=== PATIENT | female | born 1955 | race Caucasian/White ===

== ENCOUNTER → 2017-08-03 | Day surgery (SDC) | payer BC ==
[2017-07-01 11:39] VITALS: Ht 157.5 cm; Wt 76.8 kg
[~2017-08-03] VITALS: Ht 157.5 cm; Wt 76.8 kg
[~2017-08-03] MED LIST: 500ML BSS 0.3ML EPI 1:1000PF IRRIG ONE; ACETAMINOPHEN 325 MG TAB PO PRN; AMT50 PO; AMVISC PLUS 0.8ML SYRINGE INT OCU ONE; ATROPINE SULFATE 0.1 MG/ML 5ML SYR IV PRN; BSS FLUSH ONE; CALC600T9 PO; CITA40TA12 PO; ETOD-146 PO; EpHEDrine SULFATE INJ 50 MG/ML AMP IV PRN; EpINEphrine INJ 1MG/ML AMP 1 MG/ML AMP ONE; FERR1TAB23 PO; LACTATED RINGER'S 1000ML 500 ML IV SCH; LIDOCAINE 3.5% OPH GEL PER APPLICATION CHARGE ONE; LIDOCAINE HCL 1% MPF 2 ML VIAL ONE; MIDAZOLAM HCL 1 MG/ML 2ML VIAL ONE; MISC1CAP58 PO; ONDANSETRON INJ 2 MG/ML 2 ML VIAL IV PRN; POVIDONE-IODINE OP SOLN 30 ML BTL ONE; PROPARACAINE 0.5% OP SOLN PER DROP CHARGE OPL SCH; RALO60TA30 PO; SIMV20TA2 PO; SUMA50TA15 PO; TOBRAMYCIN/DEXAMETHASONE OPH OINT PER APPLN CHARGE ONE; TOPI25TA99 PO; VITATAB19 PO
[2017-08-03] MEDS: PHENYLEPHRINE HCL 2.5% OP SOLN PER DROP CHARGE OPL SCH ×2 (09:35→09:40)
[2017-08-03] MEDS: TROPICAMIDE 1% OP SOLN PER DROP CHARGE OPL SCH ×2 (09:36→09:41)
[2017-08-03] MEDS: CYCLOPENTOLATE HCL 1% OP SOLN PER DROP CHARGE OPL SCH ×2 (09:37→09:42)
[2017-08-03] MEDS: KETOROLAC 0.5% OP SOLN PER DROP CHARGE OPL SCH ×2 (09:38→09:43)
[2017-08-03] MEDS: GATIFLOXACIN OP SOLN PER DROP CHARGE OPL SCH ×2 (09:39→09:52)
--- NOTE | 2017-08-03 10:35 | History & Physical Bridge - [place] ---
H&P Re-Evaluation Bridge Note: I have examined the patient, reviewed the History & Physical and in the interval since the performance of the History & Physical I have noted the following changes of clinical significance: Diagnosis: Left Cataract Procedure: Left Cataract Removal with Lens Implant No changes noted
--- NOTE | 2017-08-03 11:13 | Discharge Instructions-SurgCtr ---
Discharge Instructions Date of Service Aug 03, 2017. Visit Reason for Visit: Cataract Left Eye Discharge Discharge Diagnosis / Problem: cataract Discharge Goals Goal(s): Improve function Activity Recommendations Activity Limitations: per Instructions/Follow-up section Anesthesia . Post Anesthesia Instructions: If you have had General Anesthesia or IV Sedation: * Do not drive today. * Resume driving when surgeon permits. * Do not make important decisions or sign legal documents today. * Call surgeon for: 1. Temperature elevations greater than 101 degrees F. 2. Uncontrollable pain. 3. Excessive bleeding. 4. Persistent nausea and vomiting. 5. Medication intolerance (nausea, vomiting or rash). * For nausea and vomiting use only clear liquids such as: tea, soda, bouillon until nausea subsides, then gradually increase diet as tolerated. * If you have any concerns or questions, call your surgeon's office. If physician is unavailable and it is an emergency, call 911 or go to the nearest emergency room. . Diet Recommendations Home Diet: resume previous diet Procedures Procedures Performed: Left Cataract Phacoemulsification With Intraocular Lens Implant Pending Studies Studies pending at discharge: no Medical Emergencies . Who to Call and When: Medical Emergencies: If at any time you feel your situation is an emergency, please call 911 immediately. . Non-Emergent Contact Non-Emergency issues call your: [employer] . . "Provider Documentation" section prepared by Jefe Milian. .
--- NOTE | 2017-08-03 11:14 | [facility] Operative Report ---
Operative Report Date of Service Aug 03, 2017. Operative Report 1. PREOPERATIVE DIAGNOSIS: Cataract of the left eye. 2. POSTOPERATIVE DIAGNOSIS: Same. 3. PROCEDURE: Phacoemulsification with intraocular lens implantation of the left eye. SURGEON: Dr. Jefe Milian. ANESTHESIA: Topical Lidocaine gel, 1% Non- Preserved intracameral Lidocaine, and monitored intravenous sedation. INDICATIONS FOR THE PROCEDURE: The patient is a 61 - year-old female with a history of cataract of the left eye causing significant visual impairment. The details of the proposed procedure were explained to the patient who asked appropriate questions and following discussion of all risks, benefits and alternatives agreed to have the procedure done. 4. OPERATION AND FINDINGS: DESCRIPTION OF PROCEDURE: After informed consent was obtained, the patient was brought to the Operating Room at the [facility]. The patient was placed in a supine position and then the left eye was prepped and draped in the usual sterile fashion for intraocular surgery. A drop of topical Lidocaine gel was placed in the operative eye. A wire lid speculum was then placed in the fornices. A corneal paracentesis was then created temporally. The Non-Preserved Lidocaine was then instilled into the anterior chamber. The anterior chamber was then pressurized with viscoelastic. A 2.0 mm clear corneal incision was then created temporally. A cystotome was inserted into the anterior chamber and used to create a tear in the anterior lens capsule. This capsular tear was then used to create a small flap and the flap was dragged in a counterclockwise direction in order to create a continuous curvilinear capsulorrhexis. Hydrodissection was accomplished with balanced salt solution. Phacoemulsification of the lens nucleus was then performed in a standard [id number] technique. The phaco time was 16 seconds with an average power of 9 %. The remaining cortical material was removed using irrigation aspiration. The capsular bag was then filled with viscoelastic. A [employer] MX60 +27.0 diopters lens was then loaded into the injector and injected into the capsular bag. The remaining viscoelastic was removed with the irrigation aspiration handpiece. The wound was hydrated and then checked and found to be watertight. The intraocular pressure was checked and found to be adequate. The wire lid speculum was removed and the patient's face was cleaned and dried. TobraDex ointment was placed in the inferior fornix. The patient was discharged to the Recovery Room having tolerated the procedure well. There were no complications. The patient will be seen tomorrow in the office for follow-up. I attest to the content of the Intraoperative Record and any orders documented therein. Any exceptions are noted below.
[2017-08-03 11:16] VITALS: TEMP 36.9
[2017-08-03 11:36] VITALS: BP 142/82; PULSE 66; O2SAT 99
--- NOTE | 2017-08-03 11:47 | Anesthesiology Progress Note ---
Anesthesia Post Op Note Date & Time Aug 03, 2017 at 11:47 Vital Signs Pain Intensity: 0 Vital Signs Past 12 Hours Date Time Temp Pulse Resp B/P (MAP) Pulse Ox O2 Delivery O2 Flow Rate FiO2 08/03/17 11:36 66 18 142/82 (102) 99 08/03/17 11:16 36.9 72 16 143/85 (104) 97 Room Air 08/03/17 09:32 36.5 62 16 152/83 (106) 99 Room Air Notes Mental Status: alert / awake / arousable, participated in evaluation Nausea / Vomiting: adequately controlled Pain: adequately controlled Airway Patency, RR, SpO2: stable & adequate BP & HR: stable & adequate Hydration State: stable & adequate Anesthetic Complications: no major complications apparent
== END | disposition home or self-care (01) ==
LOC: X.SURG 09:00
PROVIDERS: ATTEND Ophthalmology
DX: H26.9 Unspecified cataract (principal); E78.5 Hyperlipidemia, unspecified; M06.9 Rheumatoid arthritis, unspecified; F32.9 Major depressive disorder, single episode, unspecified; G43.909 Migraine, unspecified, not intractable, without status migrainosus; H35.52 Pigmentary retinal dystrophy; Z79.899 Other long term (current) drug therapy

== ENCOUNTER 2022-08-18 09:21 | Observation (INO) ==
--- NOTE | 2022-07-30 11:51 | PAT Medication Instructions ---
Medication Instructions Date of Service July 30, 2022 Home Medications adalimumab 40 mg/0.8 mL subcutaneous pen kit (Humira Pen) 40 mg subcut DIRECTED calcium carbonate 600 mg-vitamin D3 5 mcg (200 unit) tablet 1 tab PO QAM citalopram 20 mg tablet (Celexa) 20 mg PO QAM etodolac 400 mg tablet 400 mg PO QAM ferrous sulfate 325 mg (65 mg iron) tablet (Iron (ferrous sulfate)) 325 mg PO QAM folic acid 1 mg tablet 1 mg PO QAM losartan 50 mg tablet 50 mg PO QAM lutein 20 mg tablet 20 mg PO QAM metoprolol succinate 25 mg tablet,extended release 24 hr 25 mg PO QAM pantoprazole 40 mg tablet,delayed release 40 mg PO QAM raloxifene 60 mg tablet (Evista) 60 mg PO QAM simvastatin 20 mg tablet 20 mg PO PM sumatriptan succinate 100 mg tablet (Imitrex) 100 mg PO DIRECTED PRN Migraine Headache vitamin A 10,000 unit capsule 10,000 unit PO QAM ASK your surgeon for instructions etodolac 400 mg tablet 400 mg PO QAM ASK your prescriber and surgeon adalimumab 40 mg/0.8 mL subcutaneous pen kit (Humira Pen) 40 mg subcut DIRECTED raloxifene 60 mg tablet (Evista) 60 mg PO QAM STOP taking 2 weeks before surgery vitamin A 10,000 unit capsule 10,000 unit PO QAM lutein 20 mg tablet 20 mg PO QAM DO NOT take the morning of surgery calcium carbonate 600 mg-vitamin D3 5 mcg (200 unit) tablet 1 tab PO QAM ferrous sulfate 325 mg (65 mg iron) tablet (Iron (ferrous sulfate)) 325 mg PO QAM folic acid 1 mg tablet 1 mg PO QAM losartan 50 mg tablet 50 mg PO QAM Take morning of surgery With a small sip of water, OTHERWISE NOTHING TO EAT OR DRINK AFTER MIDNIGHT: citalopram 20 mg tablet (Celexa) 20 mg PO QAM metoprolol succinate 25 mg tablet,extended release 24 hr 25 mg PO QAM pantoprazole 40 mg tablet,delayed release 40 mg PO QAM sumatriptan succinate 100 mg tablet (Imitrex) 100 mg PO DIRECTED PRN Migraine Headache (if needed) Take evening before surgery simvastatin 20 mg tablet 20 mg PO PM sumatriptan succinate 100 mg tablet (Imitrex) 100 mg PO DIRECTED PRN Migraine Headache (if needed) Other Notes If you have any questions please call us at [phone] or [phone] or [phone] or [phone]
--- NOTE | 2022-08-07 13:35 | Anesthesiology Consultation ---
Date of Service August 07, 2022 Assessment & Plan (1) Encounter for pre-operative examination: - COVID screening: Per assessment on 08/07: No known COVID-19 positive contacts or current COVID-19 related symptoms. Travel screen negative. Patient vaccinated. At surgeon discretion if preop Covid testing being done. - Outpatient joint assessment: Pt currently scheduled for inpatient pathway. If surgeon requests review for outpatient joint pathway, patient is not recommended candidate for outpatient joint program from anesthesia standpoint pending surgeon's office assessment of pt motivation/appropriate home support/completion of same day joint program preop requirements. - Cardiology office visit (07/21/22): "From a functional capacity standpoint patient is able to perform activities of above 4 METS. Patient states she climbs greater than 2 flights of stairs and also walks close to 6 miles/week without symptoms. Coronary CTA (2019): Of 0. Echocardiogram: (06/23) EF of 60- 65%. EKG: To show SB with LBBB (chronic). Based on history, physical examination and the above information do not recommend further invasive or noninvasive cardiovascular testing or procedures prior to proceeding with planned total knee replacement. Patient should be considered a low cardiovascular risk candidate. Would advise giving betablocker day of surgery." Chart Review Chart Review: Acceptable Risk for Surgery and Patient seen in Pre Admission Testing Teaching & Discussion Pre-Anesthesia Teaching/Discussion Notes: Instructed NPO after midnight before surgery,except medications with 15 cc of water. Medication instructions provided according to the PAT guidelines. History Surgery Operation Date: 08/18/22 12:30 Proposed Procedures p Right Total Knee Arthroplasty - Ryan Cobb DO Height/Weight Height: 5 ft 1 in Weight: 82 kg Allergies Allergy/AdvReac Type Severity Reaction Status Date / Time ampicillin Allergy Intermediate SKIN Verified 07/30/22 08:58 REACTION naproxen Allergy Intermediate SKIN Verified 07/30/22 08:58 REACTION indomethacin AdvReac Mild HEADACHES Verified 07/30/22 08:58 Medications Home Medications Medication Instructions Recorded Confirmed Last Taken adalimumab 40 mg/0.8 mL 40 mg subcut DIRECTED 07/30/22 07/30/22 Unknown subcutaneous pen kit (Humira Pen) calcium carbonate 600 mg-vitamin 1 tab PO QAM 07/30/22 07/30/22 Unknown D3 5 mcg (200 unit) tablet citalopram 20 mg tablet (Celexa) 20 mg PO QAM 07/30/22 07/30/22 Unknown etodolac 400 mg tablet 400 mg PO QAM 07/30/22 07/30/22 Unknown ferrous sulfate 325 mg (65 mg 325 mg PO QAM 07/30/22 07/30/22 Unknown iron) tablet (Iron (ferrous sulfate)) folic acid 1 mg tablet 1 mg PO QAM 07/30/22 07/30/22 Unknown losartan 50 mg tablet 50 mg PO QAM 07/30/22 07/30/22 Unknown lutein 20 mg tablet 20 mg PO QAM 07/30/22 07/30/22 Unknown metoprolol succinate 25 mg 25 mg PO QAM 07/30/22 07/30/22 Unknown tablet,extended release 24 hr pantoprazole 40 mg tablet,delayed 40 mg PO QAM 07/30/22 07/30/22 Unknown release raloxifene 60 mg tablet (Evista) 60 mg PO QAM 07/30/22 07/30/22 Unknown simvastatin 20 mg tablet 20 mg PO PM 07/30/22 07/30/22 Unknown sumatriptan succinate 100 mg 100 mg PO DIRECTED PRN Migraine 07/30/22 07/30/22 Unknown tablet (Imitrex) Headache vitamin A 10,000 unit capsule 10,000 unit PO QAM 07/30/22 07/30/22 Unknown Past Medical History Medical History (Updated 08/07/22 @ 14:28 by Trena Torres) Depression GERD (gastroesophageal reflux disease) History of COVID-19 01/2022 Hyperlipidemia Hypertension LBBB (left bundle branch block) Reason for metoprolol per pt Follows with Dr. Darling/LOREN Legally blind Migraine Osteoporosis Rheumatoid arthritis Reason for Humira Exercise / Class Metabolic Activity II 4-5 Yardwork/Stairs/Walk up hill Past Surgical History Surgical History History of adenoidectomy History of arthroscopy right knee History of cataract surgery bilat History of section x1 History of colonoscopy History of esophagogastroduodenoscopy (EGD) History of hysterectomy History of tonsillectomy Hx of cyst of breast removed > benign Hx of ovarian cystectomy Nausea and vomiting after administration of anesthetic agent [place] teeth removed Past Anesthesia History No Hx of Anesthesia Complications (except PONV) and No Family Hx of Anesthesia Complications History of PONV No Hx of Motion Sickness and History of PONV (Remote hx) Social History Smoking Status: Never smoker Do You Dip or Chew Tobacco: No Hx Alcohol Use: Yes Alcohol type: beer alcohol intake frequency: a few times a month Hx Substance Use: No substance use type: does not use Review of Systems Patient denies chest pain, shortness of breath, dyspnea on exertion, fever, chills, cough, wheezing, palpitations. Physical Exam Vital Signs VITALS BP 122/70 P 56 TEMP 98.4 SP02 97%RA RESP 16 PHYSICAL Full cervical extension range of motion. Full TMJ range of motion. TMD 3.5 finger breaths Mallampati Score 2 Dentition: intact Lungs: clear throughout to auscultation Cardiac: regular rate and rhythm, no murmurs noted Spine: normal Carotid arteries: negative bruit Extremities: no edema Lab Results Anesthesia Preop Results Results Anesthesia Widget: WBC 8.01 K/ul (4.8-10.8) 08/07/22 Hgb 13.6 g/dl (12.0-16.0) 08/07/22 Hct 41.6 % (34.1-44.9) 08/07/22 Plt 309 K/uL (130-400) 08/07/22 Na 141 mmol/L (136-145) 08/07/22 K 4.3 mmol/L (3.5-5.1) 08/07/22 Cl 107 mmol/L (98-107) 08/07/22 CO2 28 mmol/L (21-32) 08/07/22 BUN 18 mg/dl (6-23) 08/07/22 Creat 0.91 mg/dl (0.6-1.2) 08/07/22 Glucose Level 95 mg/dl (70-99(Fasting)) 08/07/22 PT 10.3 Seconds (9.0-12.0) 08/07/22 PTT 23.9 Seconds (21.0-31.0) 08/07/22 INR 1.0 (0.9-1.1) 08/07/22 HA1c 6.0 % (4.5-5.6) H 08/07/22 Urine Color Yellow 08/07/22 Urine Appearance Clear (Clear) 08/07/22 Urine pH 5.5 (4.5-7.5) 08/07/22 Urine Specific [place] 1.018 (1.000-1.030) 08/07/22 Urine Protein Negative (Negative) 08/07/22 Urine Glucose (UA) Negative (Negative) 08/07/22 Urine Ketones Negative (Negative) 08/07/22 Urine Blood Negative (Negative) 08/07/22 Urine Nitrite Negative (Negative) 08/07/22 Urine Bilirubin Negative (Negative) 08/07/22 Urine Urobilinogen Negative (Negative) 08/07/22 Urine Leukocyte Esterase Negative (Negative) 08/07/22 Blood Type A Positive 08/07/22 Antibody Screen NEGATIVE 08/07/22 Testing Electrocardiogram Date: 07/21/22 Sinus bradycardia 55 bpm. Left bundle branch block. (Known history of LBBBEcho performed 06/02/2022 noted indication: LBBB) Chest X-Ray Date: 08/07/22 Findings: + NAD Echocardiogram Date: 06/02/22 EF 60-65%. No regional motion abnormality. Mildly increased wall thickness. No significant valvular disease. Stress Test Date: 01/02/19 Type: nuclear Myocardial ischemia involving a very small area of the basal anterior wall. Myocardial infarction is not present. EF 34%. Conclusion: Very small area of mild anterior wall ischemia. Abnormal septal wall motion suggestive of bundle branch block. Decreased contractility by gated tomography. *Stress test reviewed by cardio: Subsequent coronary CTA and cardiac MRI performed 01/2019. Per cardiology records, coronary CTA 01/2019 with calcium score of 0 and no evidence of atherosclerotic, calcification or stenosis within the visualized coronary segments. MRI cardiac 01/2019 with EF 38%, dilated cardiomyopathy with moderate global hypokinesis." > EF improved to 60-65% on recent echo 06/2022* Cervical Spine Date: 08/07/22 FINDINGS: The skeletal structures are osteopenic. There is no radiographic evidence of fracture or subluxation on the provided images. Vertebral body height and alignment are maintained throughout the cervical spine. There is no bony subluxation on the flexion/extension views. The atlantodental articulation is maintained noting productive degenerative change. The spinolaminar line is preserved. The spinous processes appear intact. Anterior osteophytes are seen throughout. There is mild disc space narrowing at C5-C6 and C6-C7. A tiny posterior disc osteophyte complex is noted at C6-C7. The prevertebral soft tissues are normal as visualized. IMPRESSION: No acute bony abnormality is identified on these lateral projections. There is no bony subluxation on the flexion/extension views. COVID-19 Risk Screen Screening Information COVID-19 Screen Date: 08/07/22 Exposure 21 Days Family/Household +COVID Last 21 Days: No Exposure 10 Days Any COVID Exposure Last 10 Days: No Symptoms Last 10 Days Experienced COVID Sx Last 10 Days: No + COVID 0-90 Days COVID + in Last 0-90 Days: No
--- NOTE | 2022-08-11 09:49 | History & Physical Report ---
Date of Service August 11, 2022 date of surgery: 08/18/22 Procedure: Right Total Knee Arthroplasty Surgeon: Ryan Cobb Assessment & Plan (1) Arthritis of right knee: Plan: Presents for evaluation of continued right knee pain, she is trying failed previous corticosteroid injection as well as viscosupplementation x-rays show advanced degenerative changes to the right knee [id number] medial compartment and patellofemoral joint with joint space narrowing osteophyte formation subchondral sclerosis. Discussed treatment options she would like to proceed a right total knee replacement. She does live alone and like to stay overnight in the hospital. We will plan outpatient match right total knee, she will need medical clearance prior to surgery she states she will have her family come stay with her for a few days as well after her surgery and we will set her up with in-home physical therapy. We will start her on aspirin 81 mg twice a day for a month postop DVT prophylaxis The risks and benefits have been discussed including, but not limited to, risk of infection, nerve injury, stiffness, loss of motion, failure to improve, etc. Reasonable outcomes and options of treatment were discussed. An explanation of appropriate alternatives to the procedure that may be advantageous were discussed and their risks and benefits, as well as the risks and benefits of not proceeding with treatment. I offered to answer any additional inquiries concerning the treatment involved. All the patient's questions were answered. The patient is agreeable, understanding of the treatment plan and alternatives, and wishes to proceed with the treatment plan. History of Present Illness Chief Complaint: Right knee pain Primary Care Provider: Jefe Milian MD Rubi is a pleasant 66-year-old female who presents for preop evaluation prior to a right total knee replacement. She states that she has been having pain in his knee for many years now which is gradually worsened and is now affecting her daily activities including walking standing using stairs. She has tried and failed previous corticosteroid injection as well as viscosupplementation without much relief she tried oral anti-inflammatories and Tylenol as well without any improvement. At this point time is felt conservative measures like proceed with right total knee replacement Allergies Allergy/AdvReac Type Severity Reaction Status Date / Time ampicillin Allergy Intermediate SKIN Verified 07/30/22 08:58 REACTION naproxen Allergy Intermediate SKIN Verified 07/30/22 08:58 REACTION indomethacin AdvReac Mild HEADACHES Verified 07/30/22 08:58 Home Medications Medication Instructions Recorded Confirmed Type adalimumab 40 mg/0.8 mL 40 mg subcut DIRECTED 07/30/22 07/30/22 History subcutaneous pen kit (Humira Pen) calcium carbonate 600 mg-vitamin 1 tab PO QAM 07/30/22 07/30/22 History D3 5 mcg (200 unit) tablet citalopram 20 mg tablet (Celexa) 20 mg PO QAM 07/30/22 07/30/22 History etodolac 400 mg tablet 400 mg PO QAM 07/30/22 07/30/22 History ferrous sulfate 325 mg (65 mg 325 mg PO QAM 07/30/22 07/30/22 History iron) tablet (Iron (ferrous sulfate)) folic acid 1 mg tablet 1 mg PO QAM 07/30/22 07/30/22 History losartan 50 mg tablet 50 mg PO QAM 07/30/22 07/30/22 History lutein 20 mg tablet 20 mg PO QAM 07/30/22 07/30/22 History metoprolol succinate 25 mg 25 mg PO QAM 07/30/22 07/30/22 History tablet,extended release 24 hr pantoprazole 40 mg tablet,delayed 40 mg PO QAM 07/30/22 07/30/22 History release raloxifene 60 mg tablet (Evista) 60 mg PO QAM 07/30/22 07/30/22 History simvastatin 20 mg tablet 20 mg PO PM 07/30/22 07/30/22 History sumatriptan succinate 100 mg 100 mg PO DIRECTED PRN Migraine 07/30/2207/30 History tablet (Imitrex) Headache vitamin A 10,000 unit capsule 10,000 unit PO QAM 07/30/22 07/30/22 History Past Med/Surg History Medical History Depression GERD (gastroesophageal reflux disease) History of COVID-19 01/2022 Hyperlipidemia Hypertension LBBB (left bundle branch block) Reason for metoprolol per pt Follows with Dr. Darling/LOREN Legally blind Migraine Osteoporosis Rheumatoid arthritis Reason for Humira Surgical History History of adenoidectomy History of arthroscopy right knee History of cataract surgery bilat History of section x1 History of colonoscopy History of esophagogastroduodenoscopy (EGD) History of hysterectomy History of tonsillectomy Hx of cyst of breast removed > benign Hx of ovarian cystectomy Nausea and vomiting after administration of anesthetic agent [place] teeth removed Social History Smoking Status: Never smoker Second Hand Exposure: No; Hx Alcohol Use: Yes Alcohol type: beer Hx Substance Use: No Preferred Language: Russian Communication Ability: Effective Director Of Coding Required: No Beliefs That Will Affect Care: None Current Living Situation: Alone Feels Safe at Home: Yes Assistive Devices: Glasses Review of Systems Review of Systems: All systems reviewed & are unremarkable except as noted in HPI & below Constitutional: no fever, no chills and no sweats Respiratory: no cough and no dyspnea Cardiovascular: no chest pain, no dyspnea and no orthopnea Gastrointestinal: no abdominal pain, no nausea and no vomiting Musculoskeletal: as per Subjective / HPI Physical Exam Physical Exam: HT: 5ft 1in WT: 82kg Constitutional: WD/WN, vitals as above no acute distress Respiratory: normal respiratory effort, lungs clear to auscultation no respiratory distress, no labored breathing and does not use accessory muscles Cardiovascular: RRR, no murmur, no edema Gastrointestinal (Abdomen): normal bowel sounds, soft, nontender, no hepatosplenomegaly Musculoskeletal: Knee: + knee abnormal to inspection (RIGHT KNEE), + effusion (+1 effusion), + limited ROM of knee (ROM 0/3/110), + knee ROM with crepitation, + joint line tenderness (medial joint line) and + Des's sign positive; no deformity, no skin erythema, no ecchymosis, no valgus laxity, no varus laxity, anterior drawer test negative, Aliec's sign negative and pivot shift test negative Results & Data Results & Data ([facility]) Diagnostic Findings Right Knee: x-rays show advanced degenerative changes to the right knee [id number] medial compartment and patellofemoral joint with joint space narrowing osteophyte formation subchondral sclerosis.
[~2022-08-18 09:21] MED LIST changes: -500ML BSS 0.3ML EPI 1:1000PF IRRIG ONE; -ACETAMINOPHEN 325 MG TAB PO PRN; +ACETAMINOPHEN 500 MG TAB PO SCH; -AMT50 PO; -AMVISC PLUS 0.8ML SYRINGE INT OCU ONE; -ATROPINE SULFATE 0.1 MG/ML 5ML SYR IV PRN; -BSS FLUSH ONE; +BUPIVACAINE 0.5 % 5 MG/1 ML PF 10ML VIAL ONE; -CALC600T9 PO; -CITA40TA12 PO; +CeleBREX 200 MG CAP PO SCH; +EPINEPHrine INJ 1 MG/ML AMP ONE; -ETOD-146 PO; -EpHEDrine SULFATE INJ 50 MG/ML AMP IV PRN; -EpINEphrine INJ 1MG/ML AMP 1 MG/ML AMP ONE; +FAMOTIDINE 20 MG TAB PO SCH; -FERR1TAB23 PO; +GABAPENTIN 300 MG CAP PO SCH; -LACTATED RINGER'S 1000ML 500 ML IV SCH; -LIDOCAINE 3.5% OPH GEL PER APPLICATION CHARGE ONE; -LIDOCAINE HCL 1% MPF 2 ML VIAL ONE; +LR 500ML BOLUS, THEN 15ML/HR IV SCH; +METOCLOPRAMIDE HCL 10 MG TABLET PO SCH; -MIDAZOLAM HCL 1 MG/ML 2ML VIAL ONE; -MISC1CAP58 PO; -ONDANSETRON INJ 2 MG/ML 2 ML VIAL IV PRN; -POVIDONE-IODINE OP SOLN 30 ML BTL ONE; -PROPARACAINE 0.5% OP SOLN PER DROP CHARGE OPL SCH; -RALO60TA30 PO; +ROPIVACAINE 0.5% 5 MG/ML 30 ML VIAL ONE; +ROPIVACAINE 0.5% HCL/PF 150 MG, BUPIVACAINE 0.75% MPF 20 ML, EPINEPHrine 30MG/30ML (OR ... INSTIL SCH; -SIMV20TA2 PO; -SUMA50TA15 PO; -TOBRAMYCIN/DEXAMETHASONE OPH OINT PER APPLN CHARGE ONE; -TOPI25TA99 PO; -VITATAB19 PO; +ceFAZolin 2000MG 2,000 MG/15 ML SYR IV SCH; +dexAMETHasone 4 MG TAB PO SCH
--- NOTE | 2022-08-18 10:02 | History & Physical Bridge Note ---
Date of Service August 18, 2022 History & Physical Bridge Note I have examined the patient, reviewed the History & Physical and in the interval since the performance of the History & Physical I have noted the following changes of clinical significance: no changes noted
[2022-08-18] MEDS ORDERED: TRANEXAMIC ACID / 0.7% NACL 1,000 MG/100 ML BAG IV ONE ×2 (10:51)
[2022-08-18] MEDS ORDERED: MIDAZOLAM HCL 1 MG/ML 2ML VIAL ONE ×2 (11:09→13:27)
[2022-08-18] MEDS ORDERED: ORTHO JOINT ANESTHETIC ONE (11:56)
[2022-08-18] MEDS ORDERED: PROMETHAZINE HCL 12.5 MG in SODIUM CHLORIDE 0.9% 50 ML IV PRN (12:07)
[2022-08-18] MEDS ORDERED: ATROPINE SULFATE 0.1 MG/ML 10ML SYR IV PRN (12:07)
[2022-08-18] MEDS ORDERED: fentaNYL citrate 100 MCG/2 ML VIAL IV PRN (12:07)
[2022-08-18] MEDS ORDERED: ONDANSETRON INJ 2 MG/ML 2 ML VIAL IV PRN ×2 (12:07→16:19)
[2022-08-18] MEDS ORDERED: HYDROmorphone INJ 2 MG/ML SYR/VIAL IV PRN (12:07)
[2022-08-18] MEDS ORDERED: ePHEDrine sulfate 50 MG/ML AMP IV PRN (12:07)
[2022-08-18] MEDS ORDERED: LIDOCAINE 2% MPF LOCAL 5 ML VIAL INFIL ONE (13:28)
[2022-08-18] MEDS ORDERED: PROPOFOL IV EMULSION 10 MG/ML 20 ML VIAL IV ONE (13:28)
--- NOTE | 2022-08-18 13:57 | Operative Report ---
Post Operative Report Pre & Post Diagnosis Operation Date: 08/18/22 11:55 Pre-Op Diagnosis: Arthritis of right knee I identified the patient and participated in the time-out.: Yes Procedure Operation Date: 08/18/22 11:55 Actual Procedures p Right Total Knee Arthroplasty(Right) utilizing [employer] persona femur 6 standard tibia D-polyeleven patella 31 Ryan Cobb DO Surgeon Ryan Cobb DO Herb [employer]ger MICHAEL Wilson Estimated Blood Loss 20 Findings Consistent with Post-Op Diagnosis Patient presents with severe end-stage DJD subchondral sclerosis marginal osteophytes eburnated [id number] large effusion Specimens Bone and cartilage Drains Medium bore Hemovac Anesthesia Type MAC Spinal Regional Complications none Disposition Accompanied Patient To Recovery: No Disposition: Recovery Room Indications Patient presents with severe end-stage DJD failing attempted conservative management occluding physical therapy anti-inflammatories relative rest activity modification corticosteroid injection viscosupplementation Description of Procedure After proper prepping and draping of the Right lower extremity anterior midline incision was made over the region of the extensor extensor mechanism after meticulous hemostasis was obtained and maintained in subcutaneous tissues a medial parapatellar incision was made The patella was subluxed lateralward the medial lateral gutter were cleaned from any hypertrophic synovitis and scar tissue of the distal femoral block was placed and the distal femoral osteotomy cut was made subsequently the chamfers anterior and posterior osteotomy cuts were made utilizing the 4-in-1 block the tibia was subsequently subluxed anteriorward medial and ateral meniscal remnants were excised in their entirety remnants of the anterior and posterior cruciate ligaments were excised in their entirety excellent exposure of the proximal tibia was obtained the tibial osteotomy guide was placed on the proximal tibial osteotomy cut was made once again the knee was irrigated with copious amounts of sterile saline solution the patella was subsequently everted lateralward thickened scar tissue around the patella was removed the patella was subsequently cut utilizing a freehand technique and was drilled prepared for final preparation and placement of patella socially flexion-extension gaps were checked and the equal and symmetric trials were placed to the appropriate femoral and tibial trials with poly-spacer being placed for equal flexion and extension gaps and full range of motion including extension to 0 and flexion to 140 the trial components after having been taken to recovery range of motion was subsequently removed meticulous hemostasis was obtained and maintained subsequently a knee block injection of joint cocktail including ropivacaine 0.5% 150 mg. Bupivacaine 0.5% epinephrine 1-200,030 mL's toradol 30 mg dexamethasone 4 mg ketamine 10 mg clonidine 100 micrograms normal saline solution 30 mg was infiltrated into the soft tissues of the posterior knee medial lateral gutters and periosteal synovium special attention was paid to protect neurovascular structures at all times subsequently trial components having been removed the knee was irrigated with sterile saline solution. debris was removed the proximal tibia was subsequently prepared and was made ready for the placement of the tibial component tibial component was also cemented and tamped into position the femoral component was subsequently placed and cemented in the position the patellar component was subsequently cemented in position because hemostasis once again obtained and maintained wound having been thoroughly irrigated with debridement and debridement lavage was performed as well as a medial parapatellar incision closed with #1 Vicryl in interrupted fashion subcutaneous was closed with #2 Vicryl skin was closed with skin clips. PA-C was necessary for prepping and drapping as well as wound closure of deep fascia Sub cutaneous tissue and skin and was necessary for the case. A sterile compressive dressing was placed patient was taken to recovery in stable condition of report dictated by Reza I attest to the content of the Intraoperative Record and any orders documented therein. Any exceptions are noted below.Due to the complex nature of the proced ure, the entire surgery was performed with the operational assistance of CLARICE Wilson. The assistant grocery, under direct supervision, was involved in the actual performance of all aspects of the surgical procedure including hemostasis, tissue retraction and incision, instrument management, patient positioning, and wound closure. I attest to the content of the Intraoperative Record and any orders documented therein. Any exceptions are noted below.
[2022-08-18] MEDS ORDERED: ONDANSETRON INJ 2 MG/ML 2 ML VIAL ONE (14:06)
[2022-08-18] MEDS ORDERED: SODIUM CHLORIDE 0.9% 1000ML 1,000 ML IV SCH (16:19)
[2022-08-18] MEDS ORDERED: NALOXONE HCL 0.4 MG/1 ML VIAL/CARP IV PRN (16:19)
[2022-08-18] MEDS ORDERED: METOCLOPRAMIDE HCL INJ 5 MG/ML 2 ML VIAL IV PRN (16:19)
[2022-08-18] MEDS ORDERED: diphenhydrAMINE Capsule 25 MG CAP PO PRN (16:19)
[2022-08-18] MEDS ORDERED: HYDROmorphone INJ 1 MG/ML SYRINGE IV PRN (16:19)
[2022-08-18] MEDS ORDERED: bisacodyL 10 MG SUPP PR PRN (16:19)
[2022-08-18] MEDS ORDERED: SUMAtriptan succinate 100 MG TAB PO PRN (16:19)
[2022-08-18] MEDS ORDERED: MAGNESIUM HYDROXIDE SUSP 30 ML UDC PO PRN (16:19)
[2022-08-18] MEDS ORDERED: oxyCODONE HCL IR 5 MG TAB (IMMEDIATE RELEASE) PO PRN (16:19)
--- NOTE | 2022-08-18 16:52 | Anesthesiology Progress Note ---
Date of Service August 18, 2022 Anesthesia Post Procedure Vital Signs Vital Signs: Temp Pulse Resp BP Pulse Ox O2 Del Method O2 Flow Rate 08/18/22 16:31 36.9 C 57 L 18 108/69 98 Room Air 08/18/22 15:00 74 17 124/54 L 98 Oxymask 3 08/18/22 14:50 76 18 116/62 98 Oxymask 3 08/18/22 15:45 36.3 C L 62 14 118/58 L 94 Room Air 08/18/22 15:30 36.3 C L 61 17 121/57 L 97 Oxymask 2 08/18/22 15:20 61 18 117/53 L 98 Oxymask 3 08/18/22 14:40 81 19 118/52 L 98 Oxymask 3 08/18/22 14:33 36.3 C L 93 H 16 115/53 L 97 Oxymask 5 08/18/22 10:16 36.8 C 63 20 112/85 97 Room Air Pain Intensity Right Knee: Pain Intensity: 6 Transfer of Care Handoff Completed per policy Notes Mental Status: alert / awake / arousable and participated in evaluation Nausea / Vomiting: adequately controlled Pain: adequately controlled Airway Patency, RR, SpO2: stable & adequate BP & HR: stable & adequate Hydration State: stable & adequate Neuraxial Anesthesia: was administered and sensory block is resolving Anesthetic Complications: no major complications apparent and Pt Satisfied with anesthetic care
[2022-08-18] MEDS: KETOROLAC TROMETHAMINE 15 MG/ML VIAL IV SCH ×2 (17:33→22:14)
[2022-08-18] MEDS: ACETAMINOPHEN 500 MG TAB PO SCH ×2 (17:33→22:14)
--- NOTE | 2022-08-18 17:59 | XRay Report ---
RIGHT KNEE 2 VIEWS History: Right total knee arthroplasty. Degenerative arthritis. Postop. FINDINGS: The patient is status post a right total knee arthroplasty. The hardware is intact. No frac ture or dislocation. Surgical drains are in place. IMPRESSION: Right total knee arthroplasty. No evidence for hardware complication. ACT 112: Negative or not required by law. Electronically signed by: Josef Chapa M.D. 08/18/2022 5:57 PM
[2022-08-18] MEDS: DOCUSATE SODIUM 100 MG CAP PO SCH (20:45)
[2022-08-18] MEDS: ceFAZolin 2000MG 2,000 MG/15 ML SYR IV SCH (20:45)
[2022-08-18] MEDS: ASPIRIN 81 MG ECTAB PO SCH (20:45)
[2022-08-18] MEDS ORDERED: SENNA 8.6 MG TAB PO SCH (21:00)
[2022-08-18] MEDS ORDERED: SIMVASTATIN 20 MG TAB PO SCH (21:00)
[2022-08-19] MEDS: ceFAZolin 2000MG 2,000 MG/15 ML SYR IV SCH (05:03)
[2022-08-19] MEDS: KETOROLAC TROMETHAMINE 15 MG/ML VIAL IV SCH ×2 (05:03→10:50)
[2022-08-19] MEDS: ACETAMINOPHEN 500 MG TAB PO SCH (05:03)
[2022-08-19 06:57] LABS: Hematocrit (blood only) 38.3 % (34.1-44.9); Hemoglobin 12.6 g/dl (12.0-16.0); Mean Corpuscular Hemoglobin 30.2 pg (25.0-34.0); Mean Corpuscular Hgb Conc 32.9 g/dL (32.0-36.0); Mean Corpuscular Volume 91.8 fL (80.0-100.0); Mean Platelet Volume 10.4 fL (9.4-12.3); Platelet Count 291 K/uL (130-400); RDW Coefficient of Variation 12.9 % (11.5-14.5); Red Blood Count 4.17 M/uL (3.93-5.22); White Blood Count 13.34 K/ul (4.8-10.8)
--- NOTE | 2022-08-19 07:23 | Orthopedic Progress Note ---
Date of Service August 19, 2022 Assessment & Plan (1) History of total right knee replacement: Plan: POD #1 s/p right TKA pt/ot dvt proph with PERLA/SCD/ASA plan for d/c home with HHPT after PT today, d/c hemovac prior to d/c Admission and Anticipated Discharge Date Admission Date: August 18, 2022 Subjective POD #1 s/p Right TKA Review of Systems Constitutional: no fever, no chills and no sweats Respiratory: no cough and no dyspnea Cardiovascular: no chest pain and no dyspnea Gastrointestinal: no abdominal pain, no nausea and no vomiting Physical Exam Physical Exam: Vital Signs Temp 37.2 C 08/19/22 02:49 Pulse 64 08/19/22 02:49 Resp 16 08/19/22 02:49 BP 132/64 08/19/22 02:49 Pulse Ox 96 08/19/22 02:49 O2 Del Method 08/19/22 02:49 O2 Flow Rate 2 08/18/22 15:30 Intake & Output 08/18/22 08/19/22 08/19/22 18:59 06:59 18:59 Intake Total 1786.5 / 3186.5 1400 / 3186.5 Output Total 20 / 1645 1625 / 1645 Balance 1766.5 / 1541.5 -225 / 1541.5 Weight 81.9 kg Intake: IV 286.5 / 1286.5 1000 / 1286.5 Lactated Ringe r's 1,000 ml @ 15 86.5 / 86.5 mls/hr IV .Q24 H [facility] Rx#: [id number] Sodium Chlorid e 0.9% 1000ML 1, 1000 / 1000 000 ml @ 100 m ls/hr IV .Q10H [facility] Rx#:[id number] Tranexamic Aci d / 0.7% NaCl 1, 200 / 200 000 mg In 100 ml @ 600 mls/hr IV ONE ONE Rx# :[id number] IV Perioperative 1500 / 1500 Oral 400 / 400 Output: Urine 1500 / 1500 Estimated Blood Loss 20 / 20 Drain Output 125 / 125 Right Knee Hem ovac 125 / 125 Other: Weight Measureme nt Method Standing Scale Musculoskeletal: Right Leg: NVDI, calf SNT, negative kellee sign. DP palpable, able to wiggle toes/ankle movement without difficulty. dressing clean dry and intact. Results & Data ([facility]) Vital Signs (Past 12 Hours) Vital Signs Temp Pulse Resp BP Pulse Ox O2 Del Method 08/19/22 02:49 37.2 C 64 16 132/64 96 Room Air 08/19/22 00:02 116/68 08/18/22 22:00 37 C 66 18 93/56 L 97 Room Air 08/18/22 20:03 36.6 C 70 20 93/63 L 95 Room Air Laboratory Results Laboratory Results WBC 13.34 K/ul (4.8-10.8) H 08/19/22 06:36 RBC 4.17 M/uL (3.93-5.22) 08/19/22 06:36 Hgb 12.6 g/dl (12.0-16.0) 08/19/22 06:36 Hct 38.3 % (34.1-44.9) 08/19/22 06:36 MCV 91.8 fL (80.0-100.0) 08/19/22 06:36 MCH 30.2 pg (25.0-34.0) 08/19/22 06:36 MCHC 32.9 g/dL (32.0-36.0) 08/19/22 06:36 RDW Std Deviation 44.0 fL (36.4-46.3) 08/19/22 06:36 RDW Coeff of Gisele 12.9 % (11.5-14.5) 08/19/22 06:36 Plt Count 291 K/uL (130-400) 08/19/22 06:36 MPV 10.4 fL (9.4-12.3) 08/19/22 06:36 SARS-CoV-2, RNA, NAAT NEGATIVE (NEGATIVE) 08/18/22 09:35 Impressions Knee X-Ray 08/18/22 12:44 RIGHT KNEE 2 VIEWS History: Right total knee arthroplasty. Degenerative arthritis. Postop. FINDINGS: The patient is status post a right total knee arthroplasty. The hardware is intact. No fracture or dislocation. Surgical drains are in place. IMPRESSION: Right total knee arthroplasty. No evidence for hardware complication. ACT 112: Negative or not required by law. Electronically signed by: Josef Chapa M.D. 08/18/2022 5:57 PM
--- NOTE | 2022-08-19 07:33 | Discharge Summary ---
Date of Service date of discharge: August 19, 2022 date of admission: 08-18-22 Admission HPI Per Admitting Provider Rubi is a pleasant 66-year-old female who presents for preop evaluation prior to a right total knee replacement. She states that she has been having pain in his knee for many years now which is gradually worsened and is now affecting her daily activities including walking standing using stairs. She has tried and failed previous corticosteroid injection as well as viscosupplementation without much relief she tried oral anti-inflammatories and Tylenol as well without any improvement. At this point time is felt conservative measures like proceed with right total knee replacement Principal Diagnosis right knee arthritis Discharge Exam Vital Signs Temp 37.2 C 08/19/22 02:49 Pulse 64 08/19/22 02:49 Resp 16 08/19/22 02:49 BP 132/64 08/19/22 02:49 Pulse Ox 96 08/19/22 02:49 O2 Del Method 08/19/22 02:49 O2 Flow Rate 2 08/18/22 15:30 Intake & Output 08/18/22 08/19/22 08/19/22 18:59 06:59 18:59 Intake Total 1786.5 / 3186.5 1400 / 3186.5 Output Total 20 / 1645 1625 / 1645 Balance 1766.5 / 1541.5 -225 / 1541.5 Weight 81.9 kg Intake: IV 286.5 / 1286.5 1000 / 1286.5 Lactated Ringer's 1,000 ml @ 15 86.5 / 86.5 mls/hr IV .Q24H [facility] Rx#: [id number] Sodium Chloride 0.9% 1000ML 1, 1000 / 1000 000 ml @ 100 mls/hr IV .Q10H [facility] Rx#:[id number] Tranexamic Acid / 0.7% NaCl 1, 200 / 200 000 mg In 100 ml @ 600 mls/hr IV ONE ONE Rx#:[id number] IV Perioperative 1500 / 1500 Oral 400 / 400 Output: Urine 1500 / 1500 Estimated Blood Loss 20 / 20 Drain Output 125 / 125 Right Knee Hemovac 125 / 125 Other: Weight Measurement Method Standing Scale Musculoskeletal right knee: NVDI, calf SNT, negative kellee sign. DP palpable, able to wiggle toes/ankle movement without difficulty. VALARIE dressing clean dry and intact. Discharge Data Allergies Allergy/AdvReac Type Severity Reaction Status Date / Time ampicillin Allergy Intermediate SKIN Verified 08/18/22 09:54 REACTION naproxen Allergy Intermediate SKIN Verified 08/18/22 09:54 REACTION indomethacin AdvReac Mild HEADACHES Verified 08/18/22 09:54 Procedures Performed Operation Date: 08/18/22 11:55 Actual Procedures p Right Total Knee Arthroplasty(Right) - Ryan Yanez DO Ordered Studies 08/18/22 05:00 US - OR guided needle placemen Routine Hospital Course (1) History of total right knee replacement: POD #1 s/p right TKA pt/ot dvt proph with PERAL/SCD/ASA plan for d/c home with HHPT after PT today, d/c hemovac prior to d/c Total Time Total Time Spent Total Time Spent (In Minutes): 20 Discharge Plan Discharge Items Patient Disposition: Home - Home Health Services Reason For Visit: Right Knee Osteoarthritis Discharge Diagnosis: RIGHT TOTAL KNEE REPLACEMENT Activity: Per Instructions section Weightbearing Comment: WBAT WITH WALKER Non-emergency contact: Surgeon Call non-emergency contact if: you have any medication questions, your temperature is above 101, your wound has increased redness, your wound has increased drainage and your wound pain has increased Follow-up/Referrals: Garry Bain [Primary Care Provider] - Diet: Regular Addtl Attending Provider Instructions: ACTIVITY RECOMMENDATIONS: SELF CARE INSTRUCTIONS AFTER TOTAL KNEE REPLACEMENT A. You may need to continue a physical therapy program after discharge from the hospital. There are several options available to you. Your doctor will assist you in selecting the best one for you. 1. An out-patient facility 2 to 3 times a week for therapy or home therapy. 2. Continue working on all exercises taught to you in the hospital. Your goals should be to increase bending of your knee to 90 degrees and beyond and to fully straighten your knee. B. You may progress at your own pace from walking with a walker or crutches to a cane; then to no assistive devices. C. Make walking a part of your daily routine. Be up as much as comfortable with rest periods throughout the day. Rest with leg elevation is very important. Use the ice wrap frequently for the first 3-4 weeks. D. There are no restrictions on activities. You may ride in a car, shop, participate in forge tender and all social activities. E. Wear the long elastic stockings (PERLA hose) 20 hours a day for 2 weeks after surgery. They can be removed several times a day for laundering and for a bath. F. You may shower, no tub baths until cleared by your doctor. SPECIAL CARE INSTRUCTIONS: VERY IMPORTANT TO READ AND REVIEW A. There are a few signs you need to watch for after you are home. Call [facility] if you notice any of the followin. Increased severe knee pain. Some pain is expected especially when you exercise. 2. Increased swelling in your leg or knee; pain or swelling of the calf muscle in either lower leg. 3. Any fluid drainage from the incision. 4. Shortness of breath or chest pain. B. Please call [facility] at if you have any concerns or questions about your operation or recovery. The doctor or his nurse will return your call promptly. C. You must take antibiotics before dental work, bladder, bowel or other surgery. Your doctor will provide you with a permanent care to carry describing this precaution. IMPORTANT: * REMEMBER TO TAKE ASPIRIN, 81 MG, TWICE DAILY FOR 4 WEEKS UNLESS OTHERWISE DIRECTED. THIS IS YOUR BLOOD THINNER. * HIGH RISK PATIENTS MAY BE PRESCRIBED A STRONGER BLOOD THINNER. THIS WILL BE PROVIDED AT DISCHARGE. * CALL IF INCREASED PAIN, REDNESS, DRAINAGE OR FEVER GREATER THAT 101. * WEAR PERLA HOSE 20 HOURS PER DAY FOR 2 WEEKS. * DRESSING INSTRUCTIONS * VALARIE Dressing- This is a large suction dressing covering your incision. This will help pull any excess drainage from the wound and allow your incision to heal properly. You may shower with this if you can keep the unit outside of the shower. If any bleeding or leakage is noted please call your doctor's office. This will remain on your incision for 7 days and then should be removed. This can be done yourself or by the home nursing staff if applicable. The entire unit is disposable once removed. Once removed, keep incision clean and dry. If redness or drainage is noted, please call your surgeon. ONCE VALARIE IS REMOVED, FOLLOW THESE INSTRUCTIONS: DERMABOND Prineo- This is a mesh tape dressing that is covered with glue. It should remain in place until the incision is properly healed, usually 10-14 days. This dressing is designed to naturally slough off. You may trim the excess mesh tape as it peels off. Incision may be briefly wet in a shower. Dry immediately by blotting with a clean, dry towel. Do not bath or swim until instructed by your doctor. Do not scratch, rub, or pick at the dressing. Do not apply any topical ointments or lotions until dressing is completely removed and/or instructed by your doctor. There may be a small piece of suture material at one end of your incision. Do not pull or trim this. If it is bothersome or catching on clothing, you may cover it with a band-aid. IF INCISION IS LEAKING THROUGH DRESSING, CALL THE OFFICE . FOLLOW UP VISIT: If appointment is not already scheduled: Please call [facility] to make a follow-up appointment for 2 weeks after your surgery at . Pending Studies at Discharge: No Stand-Alone Forms: My [facility] Medications and DC Order Prescriptions: New acetaminophen [Tylenol Extra Strength] 500 mg Tablet 1,000 mg PO Q8 21 Days Qty: 126 0RF aspirin 81 mg Tablet,Delayed Release (Dr/Ec) 81 mg PO BID 30 Days Qty: 60 0RF oxycodone 5 mg Tablet 5 - 10 mg PO Q6H PRN (Reason: pain) Qty: 30 0RF Rx Instructions: ongoing therapy, supervising dr adrian yanez. max 6 tabs in 24 hours clindamycin HCl 300 mg capsule 300 mg PO TID 7 Days Qty: 21 0RF Continued losartan 50 mg Tablet 50 mg PO QAM calcium carbonate-vitamin D3 [Calcium + D] 600 mg-5 mcg (200 unit) Tablet 1 tab PO QAM citalopram [Celexa] 20 mg Tablet 20 mg PO QAM vitamin A 10,000 unit Capsule 10,000 unit PO QAM pantoprazole 40 mg Tablet,Delayed Release (Dr/Ec) 40 mg PO QAM simvastatin 20 mg Tablet 20 mg PO PM ferrous sulfate [Iron (ferrous sulfate)] 325 mg (65 mg iron) Tablet 325 mg PO QAM raloxifene [Evista] 60 mg Tablet 60 mg PO QAM folic acid 1 mg Tablet 1 mg PO QAM metoprolol succinate 25 mg Tablet Extended Release 24 Hr 25 mg PO QAM Humira Pen 40 mg/0.8 mL Pen Injector Kit 40 mg SUBCUT DIRECTED Rx Instructions: inject one - 40 mg/0.8 mL pen every 2 weeks lutein 20 mg Tablet 20 mg PO QAM Rx Instructions: give with meal/snack sumatriptan succinate [Imitrex] 100 mg Tablet 100 mg PO DIRECTED PRN (Reason: Migraine Headache) Rx Instructions: take 1 tab at onset of headache; if no relief, may repeat 1 tab after at least 2 hrs; max = 2 tabs/24 hrs Discontinued etodolac 400 mg Tablet 400 mg PO QAM Discharge Orders: Discharge Order (Routine); Ordered 08/19/22 Ordered By: Bonifacio Dunn Admission Data Admit Date/Time: 08/18/22 12:44 Attending Provider: Ryan Yanez Admit Provider: Ryan Yanez Primary Care Provider: Garry Bain
[2022-08-19 07:45] LABS: Calcium 8.1 mg/dl (8.5-10.1); Potassium 4.3 mmol/L (3.5-5.1)
[2022-08-19] MEDS: ASPIRIN 81 MG ECTAB PO SCH (07:50)
[2022-08-19 07:51] LABS: BUN Creatinine Ratio 17.3 (10-20); Creatinine Clr Calc Pharmacy 50.9 ml/min; Est GFR (African American) 64.4 ml/min; Est GFR (Non-African American) 55.6 ml/min
[2022-08-19] MEDS: DOCUSATE SODIUM 100 MG CAP PO SCH (07:51)
[2022-08-19] MEDS ORDERED: LOSARTAN POTASSIUM 50 MG TAB PO SCH (09:00)
[2022-08-19] MEDS ORDERED: CITALOPRAM 20 MG TAB PO SCH (09:00)
[2022-08-19] MEDS ORDERED: MULTIVITAMIN TAB PO SCH (09:00)
[2022-08-19] MEDS ORDERED: FOLIC ACID 1 MG TAB PO SCH (09:00)
[2022-08-19] MEDS ORDERED: METOPROLOL SUCC 25MG EXT REL TAB PO SCH (09:00)
[2022-08-19] MEDS ORDERED: RALOXIFENE HCL 60 MG TAB PO SCH (09:00)
[2022-08-19] MEDS ORDERED: FERROUS SULFATE 325 MG TAB PO SCH (09:00)
== END 2022-08-19 14:26 | disposition home health service (06) ==
LOC: ASU 09:21 → 3E 09:21